=== PATIENT | male | born 1950 | race Caucasian/White ===

== ENCOUNTER 2017-09-11 17:34 | Inpatient (IN) | payer OTHER, BC ==
[~2017-09-11] VITALS: Ht 172.7 cm; Wt 122.0 kg
[2017-09-11 18:24] LABS: BASE EXCESS 2.8 mEq/L (-3 to +3); BICARBONATE 28.5 mEq/L (22-26); PCO2 47 mm Hg (35-45); PO2 81 mm Hg (80-100); pH 7.39 (7.35-7.45)
[2017-09-11 18:25] LABS: COMMENTS - BLOOD GASES A+C+; DEVICE NC; O2 FLOW 2 L/MIN; SITE RR
[2017-09-11 18:39] LABS: EOSINOPHIL (%) 1.3 % (0-5); EOSINOPHIL COUNT 0.1 K/uL (0-0.3); IMMATURE GRANULOCYTE (%) 0.2 % (0.0-0.7); INSTRUMENT ABS NEUTROPHIL CT 3.5 K/uL; LYMPHOCYTE COUNT 1.2 K/uL (1.0-2.8); MCH 21.2 PG (29.0-34.0); MCHC 27.4 G/DL (30.0-36.0); MCV 77.6 FL (86-99); MEAN PLAT.VOLUME 9.3 uM^3 (9.0-12.4); MONOCYTE (%) 7.6 % (3-12); MONOCYTE COUNT 0.4 K/uL (0-0.8); NEUTROPHIL (%) 66.8 % (45-76); NEUTROPHIL COUNT 3.5 K/uL (1.8-6.4); PLATELET COUNT 209 K/uL (156-360); RBC DIS.WIDTH-CV 18.7 % (11.8-14.6); RED BLOOD COUNT 2.45 M/uL (4.00-5.50); WHITE BLOOD COUNT 5.2 K/uL (4.1-10.2)
[2017-09-11 18:41] LABS: INTER. NORMALIZED RATIO 1.3; PROTHROMBIN TIME 14.2 SEC (10.2-12.9)
[2017-09-11 18:44] LABS: PTT 28.8 SEC (25-37)
[2017-09-11 18:45] LABS: CHLORIDE 103 mEq/L (99-109); SODIUM 138 mEq/L (136-147)
[2017-09-11 18:47] LABS: GLUCOSE 101 mg/dL (70-99)
[2017-09-11 18:48] LABS: ANION GAP 10 MEQ/L (2-14)
[2017-09-11 18:49] LABS: TOTAL BILIRUBIN 0.4 mg/dL (0.0-1.0)
[2017-09-11 18:50] LABS: ALKALINE PHOSPHATASE 82 IU/L (3-129)
[2017-09-11 18:51] LABS: GFR ESTIMATE (CALCULATED) 59 mL/min/ (58.99-99999)
[2017-09-11 18:52] LABS: UREA NITROGEN (BUN) 37 mg/dL (9-23)
[2017-09-11 18:54] LABS: TROP-I INTERPRETATION NEGATIVE; TROPONIN-I 0.07 ng/mL (0.0-0.30)
[2017-09-11 20:50] VITALS: BP 92/59
[2017-09-11 21:11] VITALS: BP 88/56
[2017-09-11 22:03] LABS: ADD MIUA? NO; BILIRUBIN NEGATIVE; BLOOD NEGATIVE; COLOR YELLOW ((YELLOW)); GLUCOSE (STRIP) NEGATIVE; KETONES NEGATIVE; LEUKOCYTES NEGATIVE; NITRITE NEGATIVE; PROTEIN (STRIP) NEGATIVE; SPECIFIC GRAVITY 1.014 (1.000-1.030); UCUL ADDED? NO; UROBILINOGEN 0.2 MG/DL (0.2-1.0)
[2017-09-11] MEDS ORDERED: METFORMIN HCL1000 MG PO (22:07)
[2017-09-11] MEDS ORDERED: MOBIC15 MG PO (22:07)
[2017-09-11] MEDS ORDERED: ASPIRIN325 MG PO (22:07)
[2017-09-11] MEDS ORDERED: DIOVAN HCT 31 TABLE1 PO (22:08)
[2017-09-11 22:11] VITALS: BP 100/54
[2017-09-11 23:11] VITALS: BP 94/59
[2017-09-12] VITALS (11 sets, daily range): BP systolic 91–124; BP diastolic 57–91
[2017-09-12 05:57] LABS: HEMATOCRIT 22.5 % (38.0-50.0); MCV 78.7 FL (86-99)
[2017-09-12 06:01] LABS: IRON 18 MCG/DL (35-150)
[2017-09-12 07:38] LABS: FERRITIN 6 NG/ML (22-322)
[2017-09-12] MEDS ORDERED: GLUCOSAMINE-CH1 EA45 PO (11:05)
[2017-09-12] MEDS ORDERED: VITAMIN E400 UNIT PO (11:08)
[2017-09-12 12:01] LABS: HEMATOCRIT 25.7 % (38.0-50.0); MCV 79.1 FL (86-99)
[2017-09-12 12:13] LABS: CHLORIDE 103 mEq/L (99-109); POTASSIUM 5.2 mEq/L (3.7-5.4); SODIUM 137 mEq/L (136-147)
[2017-09-12 12:15] LABS: GLUCOSE 96 mg/dL (70-99)
[2017-09-12 12:16] LABS: ANION GAP 6 MEQ/L (2-14)
[2017-09-12 12:19] LABS: GFR ESTIMATE (CALCULATED) 54 mL/min/ (58.99-99999)
[2017-09-12 12:20] LABS: UREA NITROGEN (BUN) 32 mg/dL (9-23)
[2017-09-12 15:27] LABS: POINT-OF-CARE METER ID UU14107333; POINT-OF-CARE USER ID AHSUCAJR
[2017-09-12 16:47] LABS: POINT-OF-CARE METER ID UU13113819
[2017-09-12 18:08] LABS: HEMATOCRIT 27.2 % (38.0-50.0); MCV 79.5 FL (86-99)
[2017-09-12 18:26] LABS: POINT-OF-CARE METER ID UU13113698
[2017-09-12 22:30] LABS: HEMATOCRIT 29.8 % (38.0-50.0); MCV 79.9 FL (86-99)
[2017-09-13 03:30] VITALS: BP 90/57
[2017-09-13 05:47] LABS: EOSINOPHIL (%) 1.7 % (0-5); EOSINOPHIL COUNT 0.1 K/uL (0-0.3); HEMATOCRIT 28.5 % (38.0-50.0); IMMATURE GRANULOCYTE (%) 0.6 % (0.0-0.7); INSTRUMENT ABS NEUTROPHIL CT 3.6 K/uL; MCH 23.7 PG (29.0-34.0); MCHC 29.5 G/DL (30.0-36.0); MCV 80.3 FL (86-99); MONOCYTE (%) 10.6 % (3-12); MONOCYTE COUNT 0.6 K/uL (0-0.8); NEUTROPHIL (%) 68.4 % (45-76); NEUTROPHIL COUNT 3.6 K/uL (1.8-6.4); PLATELET COUNT 192 K/uL (156-360); RBC DIS.WIDTH-CV 17.1 % (11.8-14.6); RBC DIS.WIDTH-SD 49.3 % (39-53); WHITE BLOOD COUNT 5.3 K/uL (4.1-10.2)
[2017-09-13 05:53] LABS: RED BLOOD COUNT 3.55 M/uL (4.00-5.50)
[2017-09-13 06:11] LABS: ALKALINE PHOSPHATASE 83 IU/L (3-129); ANION GAP 6 MEQ/L (2-14); CHLORIDE 100 MEQ/L (99-109); GFR ESTIMATE (CALCULATED) 59 mL/min/ (58.99-99999); GLUCOSE 98 mg/dL (70-99); POTASSIUM 4.9 MEQ/L (3.7-5.4); SAMPLE HEMOLYSIS CHECK 0; SAMPLE ICTERIC CHECK 0; SAMPLE LIPEMIA CHECK 0; SODIUM 138 MEQ/L (136-147); TOTAL BILIRUBIN 0.9 MG/DL (0.0-1.0); UREA NITROGEN (BUN) 24 mg/dL (9-23)
[2017-09-13 08:00] VITALS: BP 100/72
[2017-09-13 08:21] LABS: POINT-OF-CARE METER ID UU13113781; POINT-OF-CARE USER ID NUTSLF44
[2017-09-13 11:55] VITALS: BP 113/74
[2017-09-13 12:14] LABS: POINT-OF-CARE METER ID UU13113781; POINT-OF-CARE USER ID NUTSLF44
[2017-09-13 16:35] VITALS: BP 119/62
[2017-09-13 16:47] LABS: POINT-OF-CARE METER ID UU14314088; POINT-OF-CARE USER ID NUTSLF44
[2017-09-13 19:35] VITALS: BP 119/62
[2017-09-14 00:20] VITALS: BP 112/57
[2017-09-14 01:40] LABS: POINT-OF-CARE METER ID UU13113781; POINT-OF-CARE USER ID ENVMNS
[2017-09-14 04:30] VITALS: BP 134/65
[2017-09-14 06:33] LABS: HEMATOCRIT 28.4 % (38.0-50.0); MCH 23.4 PG (29.0-34.0); MCHC 28.9 G/DL (30.0-36.0); MCV 81.1 FL (86-99); MEAN PLAT.VOLUME 9.6 uM^3 (9.0-12.4); NRBC (%) 0.4 /100 WBC (0-0); PLATELET COUNT 182 K/uL (156-360); RBC DIS.WIDTH-CV 17.5 % (11.8-14.6); RBC DIS.WIDTH-SD 51.1 % (39-53); WHITE BLOOD COUNT 4.8 K/uL (4.1-10.2)
[2017-09-14 06:56] LABS: ANION GAP 5 MEQ/L (2-14); CHLORIDE 97 MEQ/L (99-109); GFR ESTIMATE (CALCULATED) 59 mL/min/ (58.99-99999); GLUCOSE 96 mg/dL (70-99); POTASSIUM 4.7 MEQ/L (3.7-5.4); SAMPLE HEMOLYSIS CHECK 0; SAMPLE ICTERIC CHECK 0; SAMPLE LIPEMIA CHECK 0; SODIUM 137 MEQ/L (136-147); UREA NITROGEN (BUN) 20 mg/dL (9-23)
[2017-09-14 07:38] VITALS: BP 121/59
[2017-09-14 08:25] LABS: POINT-OF-CARE METER ID UU13113781
[2017-09-14] MEDS ORDERED: ZEGERID40 MG PO (10:31)
[2017-09-14] MEDS ORDERED: KLOR-CON M1010 MEQ PO (10:31)
[2017-09-14] MEDS ORDERED: FUROSEMIDE40 MG PO (10:31)
[2017-09-14] MEDS ORDERED: LEVOFLOXACIN500 MG PO (10:31)
[2017-09-14 11:11] VITALS: BP 105/63
== END 2017-09-14 15:24 | disposition home or self-care (01) | DRG 291 ==
LOC: EME 17:34 → 4EAST 09-12 01:04 → EDOF 09-12 01:04 → ENRESERV 09-12 01:09 → 4EAST 09-12 17:29
PROVIDERS: Emergency Medicine; Hospitalist; Internal Medicine; Internal Medicine Gastroenterology; Pediatrics; Physician Assistant
PROC: 30233N1 Transfusion of Nonautologous Red Blood Cells into Peripheral Vein, Percutaneous Approach (ICD-10-PCS; principal; 2017-09-11)
PROC: 0DB68ZX Excision of Stomach, Via Natural or Artificial Opening Endoscopic, Diagnostic (ICD-10-PCS; 2017-09-12)
DX: I11.0 Hypertensive heart disease with heart failure (principal); I50.41 Acute combined systolic (congestive) and diastolic (congestive) heart failure; I08.0 Rheumatic disorders of both mitral and aortic valves; J44.0 Chronic obstructive pulmonary disease with (acute) lower respiratory infection; J18.9 Pneumonia, unspecified organism; D62 Acute posthemorrhagic anemia; K25.4 Chronic or unspecified gastric ulcer with hemorrhage; K26.0 Acute duodenal ulcer with hemorrhage; K26.4 Chronic or unspecified duodenal ulcer with hemorrhage; T39.315A Adverse effect of propionic acid derivatives, initial encounter; N17.9 Acute kidney failure, unspecified; E11.9 Type 2 diabetes mellitus without complications; G47.30 Sleep apnea, unspecified; G89.29 Other chronic pain; M54.9 Dorsalgia, unspecified; I27.20 Pulmonary hypertension, unspecified; I95.9 Hypotension, unspecified; R94.31 Abnormal electrocardiogram [ECG] [EKG]; F17.210 Nicotine dependence, cigarettes, uncomplicated; E66.01 Morbid (severe) obesity due to excess calories; Z79.82 Long term (current) use of aspirin; Z68.39 Body mass index [BMI] 39.0-39.9, adult
CPT/HCPCS: 36600; 71010; 71020; 80048; 80048 91; 80053; 80069; 81003; 82272; 82728; 82803; 82948; 83540; 83605; 83880; 84443; 84466; 84484; 85014; 85018; 85025; 85027; 85610; 85730; 86850; 86900; 86901; 86920; 87040; 88305; 88342 TC; 93005; 93306; 94799; 99281; 99285; C9113; J0456; J0696; J1756; J1940; J2250; J7030; J7050; P9016

== ENCOUNTER → 2017-10-11 | Outpatient (CLI) | payer OTHER, BC ==
[~2017-10-11] VITALS: Ht 165.1 cm; Wt 111.6 kg
[~2017-10-11] MED LIST: ASPIRIN325 MG PO; DIOVAN HCT 31 TABLE1 PO; FUROSEMIDE40 MG PO; GLUCOSAMINE-CH1 EA45 PO; KLOR-CON M1010 MEQ PO; LEVOFLOXACIN500 MG PO; METFORMIN HCL1000 MG PO; MOBIC15 MG PO; VITAMIN D32000 UNI1 PO; VITAMIN E400 UNIT PO; ZEGERID40 MG PO
== END | disposition home or self-care (01) ==
LOC: AMB 12:18
PROVIDERS: Internal Medicine Gastroenterology
DX: Z09 Encounter for follow-up examination after completed treatment for conditions other than malignant neoplasm (principal); Z87.11 Personal history of peptic ulcer disease; D12.5 Benign neoplasm of sigmoid colon; K62.1 Rectal polyp; D50.0 Iron deficiency anemia secondary to blood loss (chronic); K25.7 Chronic gastric ulcer without hemorrhage or perforation; K57.30 Diverticulosis of large intestine without perforation or abscess without bleeding; K29.80 Duodenitis without bleeding; I10 Essential (primary) hypertension; E11.9 Type 2 diabetes mellitus without complications; I35.0 Nonrheumatic aortic (valve) stenosis
CPT/HCPCS: 82948; 88305; 88342 TC; J2250